=== PATIENT | male | born 1950 | race Two or more races ===

== ENCOUNTER 2024-01-28 07:03 | Day surgery (SDC) | payer OTHER ==
[~2024-01-28] VITALS: Ht 180.3 cm; Wt 93.4 kg
[~2024-01-28 07:03] MED LIST: AVAPRO150 MG PO; FERROCITE324 MG PO; TOPROL XL25 M1 PO; ZOCOR40 MG PO
[2024-01-28] MEDS ORDERED: CEFAZOLIN SODIUM 1,000 MG VIAL IV ONE (09:15)
[2024-01-28] MEDS ORDERED: HEPARIN SODIUM,PORCINE 500 UNITS/5 ML VIAL IV ONE (09:15)
[2024-01-28] MEDS ORDERED: TRAM1TAB98 PO (09:16)
[2024-01-28] MEDS ORDERED: BUPIVACAINE HCL/PF 0.25% 50 ML VIAL IJ ONE (09:45)
== END 2024-01-28 12:20 | disposition home or self-care (01) ==
LOC: CIR.AMB 07:03
PROVIDERS: ATTEND Surgery
DX: C20 Malignant neoplasm of rectum (principal); K62.5 Hemorrhage of anus and rectum; I25.10 Atherosclerotic heart disease of native coronary artery without angina pectoris; I49.9 Cardiac arrhythmia, unspecified; I10 Essential (primary) hypertension; E87.5 Hyperkalemia; D64.9 Anemia, unspecified; N28.9 Disorder of kidney and ureter, unspecified
CPT/HCPCS: 36561; C1751

== ENCOUNTER 2024-12-26 08:56 | Inpatient (IN) | payer OTHER ==
[~2024-12-26] VITALS: Ht 180.3 cm; Wt 95.3 kg
[~2024-12-26 08:56] MED LIST changes: +TRAM1TAB98 PO
[2024-12-26 09:26] VITALS: BP 130/82
[2024-12-26 09:33] LABS: PH,URINE 5.5 (5.0-8.0); URINE APPEARANCE Clear; URINE BILIRRUBIN Negative (NEGATIVE); URINE BLOOD Negative; URINE COLOR Yellow; URINE GLUCOSE Negative (NEGATIVE); URINE KETONE Negative (NEGATIVE); URINE LEUKOCYTE Negative; URINE NITRATE Negative; URINE PROTEIN Negative (NEGATIVE); URINE UROBILINOGEN 0.2 E.U./dl
[2024-12-26 09:36] LABS: BASO % 1.1 % (0.1-1.2); EOS # 0.33 (0.04-0.54); EOS % 7.3 % (0.7-7.0); HEMATOCRIT 38.6 % (40.1-51.0); LYMPH # 0.96 (1.18-3.74); LYMPH % 21.4 % (19.3-53.1); MEAN CORPUSCULAR HEMOGLOBIN 30.5 pg (25.6-32.2); NEUT # 2.55 (1.56-6.13); NEUT % 56.8 % (34.0-71.1); PLATELET COUNT 239 K/uL (163-369); RED BLOOD COUNT 4.26 M/uL (4.63-6.08); RED CELL DISTRIBUTION WIDTH 14.8 % (11.6-14.4)
[2024-12-26 09:37] LABS: URINE BACTERIA 7.3 uL (0.0-1933); URINE EPITHELIAL CELLS 2.3 uL (0.0-38.8); URINE WBC 2.6 uL (0.0-23.2)
[2024-12-26 09:42] LABS: MONO % 13.4 % (4.7-12.5)
[2024-12-26 09:52] LABS: URINE CAST 0.14 uL (0.0-1.40); URINE RBC 0.8 uL (0.0-20.8)
[2024-12-26 10:13] LABS: INR 1.08; PARTIAL THROMBOPLASTIN TIME 28.5 SECONDS (22.0-34.0); PROTHROMBIN TIME 11.7 SECONDS (9.0-11.5)
[2024-12-26 12:43] LABS: ALBUMIN 3.5 gm/dL (3.4-5.0); BILIRUBIN TOTAL 0.64 mg/dL (0.3-1.2); CALCIUM 9.5 mg/dL (8.5-10.1); CREATININE SERUM 1.38 mg/dL (0.70-1.30); GFR 50.65; GLOBULINA 3.9 G/DL (2.4-3.5); POTASSIUM 5.13 mEq/L (3.5-5.1); TOTAL PROTEIN 7.4 gm/dL (6.4-8.2)
[2024-12-26 13:21] LABS: RH POSITIVE
[2025-01-02] MEDS ORDERED: CEFTRIAXONE SODIUM 2,000 MG VIAL ONE (07:54)
[2025-01-02] MEDS ORDERED: METRONIDAZOLE/SODIUM CHLORIDE 500 MG/100 ML PIGGYBACK IV ONE (07:54)
[2025-01-02] MEDS ORDERED: LIDOCAINE HCL 1%/EPINEPHRINE 20ML VIAL IJ ONE (11:00)
[2025-01-02] MEDS ORDERED: BUPIVACAINE HCL 30 ML VIAL IJ ONE (11:00)
[2025-01-02] MEDS ORDERED: RINGERS SOLUTION,LACTATED 1,000 ML IV SCH (12:30)
[2025-01-02] MEDS ORDERED: MORPHINE SULFATE 4 MG/ML CARTRIDGE IV PRN (12:30)
[2025-01-02] MEDS ORDERED: DEXTROSE 50 % IN WATER 0.5 G/ML VIAL IV PRN (12:30)
[2025-01-02] MEDS ORDERED: OxyCODONE HCL 5 MG TABLET (ROXICODONE) PO PRN (12:30)
[2025-01-02] MEDS ORDERED: ONDANSETRON HCL 2 MG/ML VIAL IV PRN (12:30)
[2025-01-02] MEDS ORDERED: MORPHINE SULFATE 4 MG/ML VIAL IV ONE (13:45)
[2025-01-02] MEDS ORDERED: ACETAMINOPHEN 500 MG GEL..CAP PO SCH (14:00)
[2025-01-02 16:02] LABS: ALBUMIN 3.3 gm/dL (3.4-5.0); CALCIUM 9.1 mg/dL (8.5-10.1); CREATININE SERUM 1.21 mg/dL (0.70-1.30); GFR 58.95; MAGNESIUM 1.9 mg/dL (1.8-2.4); PHOSPHOROUS 3.9 mg/dL (2.5-4.9); POTASSIUM 4.52 mEq/L (3.5-5.1)
[2025-01-02] MEDS ORDERED: GABAPENTIN 300 MG CAPSULE PO SCH (17:00)
[2025-01-02] MEDS ORDERED: POLYETHYLENE GLYCOL 3350 17 GM BLIST.PACK PO SCH (17:00)
[2025-01-02 17:27] LABS: BASO % 0.1 % (0.1-1.2); HEMOGLOBIN 12.4 g/dL (13.7-17.5); LYMPH # 0.45 (1.18-3.74); LYMPH % 4.8 % (19.3-53.1); MEAN CORPUSCULAR HEMOGLOBIN 30.2 pg (25.6-32.2); MONO # 0.68 (0.24-0.82); MONO % 7.2 % (4.7-12.5); NEUT # 8.26 (1.56-6.13); NEUT % 87.6 % (34.0-71.1); PLATELET COUNT 223 K/uL (163-369); RED BLOOD COUNT 4.11 M/uL (4.63-6.08); RED CELL DISTRIBUTION WIDTH 14.6 % (11.6-14.4)
[2025-01-02 18:20] VITALS: BP 158/81; O2SAT 95
[2025-01-02] MEDS ORDERED: FAMOTIDINE/PF 20 MG/2 ML VIAL IV PUSH SCH (21:00)
[2025-01-03 02:29] VITALS: BP 142/81; O2SAT 95
[2025-01-03 08:00] VITALS: BP 149/78; O2SAT 95
[2025-01-03 08:32] LABS: BASO % 0.1 % (0.1-1.2); EOS # 0.01 (0.04-0.54); EOS % 0.1 % (0.7-7.0); HEMOGLOBIN 12.1 g/dL (13.7-17.5); LYMPH # 0.45 (1.18-3.74); LYMPH % 6.7 % (19.3-53.1); MEAN CORPUSCULAR HEMOGLOBIN 30.1 pg (25.6-32.2); MONO # 0.64 (0.24-0.82); MONO % 9.6 % (4.7-12.5); NEUT # 5.53 (1.56-6.13); NEUT % 83.1 % (34.0-71.1); PLATELET COUNT 200 K/uL (163-369); RED BLOOD COUNT 4.02 M/uL (4.63-6.08); RED CELL DISTRIBUTION WIDTH 14.7 % (11.6-14.4)
[2025-01-03] MEDS ORDERED: METOPROLOL SUCCINATE 25 MG TAB.SR.24H PO SCH (09:00)
[2025-01-03] MEDS ORDERED: IRBESARTAN 150 MG TABLET PO SCH (09:00)
[2025-01-03 09:28] LABS: ALBUMIN 3.1 gm/dL (3.4-5.0); CALCIUM 8.9 mg/dL (8.5-10.1); CREATININE SERUM 1.07 mg/dL (0.70-1.30); GFR 67.93; MAGNESIUM 1.8 mg/dL (1.8-2.4); PHOSPHOROUS 2.9 mg/dL (2.5-4.9); POTASSIUM 4.15 mEq/L (3.5-5.1)
[2025-01-03 16:00] VITALS: BP 121/65; O2SAT 96
[2025-01-03] MEDS ORDERED: ENOXAPARIN SODIUM 40 MG/0.4 ML SYRINGE SUBCUTANEO SCH (17:00)
[2025-01-04 01:01] VITALS: BP 136/83; O2SAT 99
[2025-01-04 08:00] VITALS: BP 149/87; O2SAT 95
[2025-01-04] MEDS ORDERED: ENOXAPARIN SODIUM 40 MG/0.4 ML SYRINGE SUBCUTANEO SCH (09:00)
[2025-01-04] MEDS ORDERED: TAMSULOSIN HCL 0.4 MG CAP PO SCH (09:51)
[2025-01-04 16:00] VITALS: BP 138/85; O2SAT 95
[2025-01-05] VITALS: BP 139/82; O2SAT 94
[2025-01-05 08:00] VITALS: BP 125/78; O2SAT 96
[2025-01-05 09:49] LABS: BASO % 0.4 % (0.1-1.2); EOS # 0.13 (0.04-0.54); EOS % 1.7 % (0.7-7.0); HEMATOCRIT 39.9 % (40.1-51.0); HEMOGLOBIN 13.2 g/dL (13.7-17.5); LYMPH # 0.74 (1.18-3.74); LYMPH % 9.7 % (19.3-53.1); MONO # 0.66 (0.24-0.82); MONO % 8.7 % (4.7-12.5); NEUT # 6.04 (1.56-6.13); NEUT % 79.4 % (34.0-71.1); PLATELET COUNT 230 K/uL (163-369); RED CELL DISTRIBUTION WIDTH 14.7 % (11.6-14.4)
[2025-01-05 10:49] LABS: ALBUMIN 2.8 gm/dL (3.4-5.0); CREATININE SERUM 1.16 mg/dL (0.70-1.30); GFR 61.89; PHOSPHOROUS 3.1 mg/dL (2.5-4.9); POTASSIUM 4.44 mEq/L (3.5-5.1)
[2025-01-05 15:55] VITALS: BP 153/90; O2SAT 97
[2025-01-06 00:37] VITALS: BP 127/80; O2SAT 94
[2025-01-06 08:00] VITALS: BP 133/83; O2SAT 95
[2025-01-06 16:00] VITALS: BP 125/81; O2SAT 95
[2025-01-07 00:54] VITALS: BP 126/79; O2SAT 95
[2025-01-07 10:05] VITALS: BP 135/77; O2SAT 96
[2025-01-07 16:00] VITALS: BP 131/88; O2SAT 97
[2025-01-08] VITALS: BP 106/56; O2SAT 94
[2025-01-08] MEDS ORDERED: TYLENOL ARTHRI650 MG PO (07:19)
[2025-01-08] MEDS ORDERED: NEURONTIN300 MG PO (07:19)
[2025-01-08] MEDS ORDERED: TAMS0.4C PO (07:19)
[2025-01-08] MEDS ORDERED: PRILOSEC OTC20 MG PO (07:19)
[2025-01-08 08:52] VITALS: BP 151/92; O2SAT 96
== END 2025-01-08 14:38 | disposition home or self-care (01) | DRG 331 ==
LOC: SURH 01-02 07:00 → O/R 01-02 07:43 → SURH 01-02 09:00
PROVIDERS: ADMIT Surgery; ATTEND Surgery
PROC: 0DTP4ZZ Resection of Rectum, Percutaneous Endoscopic Approach (ICD-10-PCS; 2025-01-02)
PROC: 07BC4ZZ Excision of Pelvis Lymphatic, Percutaneous Endoscopic Approach (ICD-10-PCS; 2025-01-02)
PROC: 0DJD8ZZ Inspection of Lower Intestinal Tract, Via Natural or Artificial Opening Endoscopic (ICD-10-PCS; 2025-01-02)
PROC: 0D1B4Z4 Bypass Ileum to Cutaneous, Percutaneous Endoscopic Approach (ICD-10-PCS; principal; 2025-01-02 07:00)
DX: C20 Malignant neoplasm of rectum (principal)

== ENCOUNTER 2024-12-26 10:35 | Outpatient (CLI) | payer OTHER | END 2024-12-26 10:45 | disposition home or self-care (01) | LOC: TOM 10:35 | PROVIDERS: ATTEND Surgery | DX: C20 Malignant neoplasm of rectum (principal); K62.5 Hemorrhage of anus and rectum; R59.0 Localized enlarged lymph nodes; D50.9 Iron deficiency anemia, unspecified | CPT/HCPCS: 71260; 74177; Q9965 ==

== ENCOUNTER 2025-05-11 09:00 | Inpatient (IN) | payer OTHER ==
[~2025-05-11] VITALS: Ht 180.3 cm; Wt 93.0 kg
[~2025-05-11 09:00] MED LIST changes: +NEURONTIN300 MG PO; +PRILOSEC OTC20 MG PO; +TAMS0.4C PO; +TYLENOL ARTHRI650 MG PO
[2025-05-11 10:38] LABS: BASO % 0.8 % (0.1-1.2); EOS # 0.17 (0.04-0.54); EOS % 3.4 % (0.7-7.0); LYMPH # 0.96 (1.18-3.74); LYMPH % 19.1 % (19.3-53.1); MEAN PLATELET VOLUME 8.80 fl (9.4-12.4); MONO # 0.52 (0.24-0.82); MONO % 10.4 % (4.7-12.5); NEUT # 3.32 (1.56-6.13); NEUT % 66.1 % (34.0-71.1); RED CELL DISTRIBUTION WIDTH 15.1 % (11.6-14.4)
[2025-05-11 10:39] LABS: URINE APPEARANCE Clear; URINE BILIRRUBIN Negative (NEGATIVE); URINE BLOOD Negative; URINE COLOR Yellow; URINE GLUCOSE Negative (NEGATIVE); URINE KETONE Negative (NEGATIVE); URINE LEUKOCYTE Small; URINE NITRATE Negative; URINE PROTEIN Negative (NEGATIVE); URINE UROBILINOGEN 0.2 E.U./dl
[2025-05-11 10:42] VITALS: BP 126/82
[2025-05-11 10:42] LABS: URINE BACTERIA 32.3 uL (0.0-1933); URINE EPITHELIAL CELLS 7.2 uL (0.0-38.8); URINE WBC 105.1 uL (0.0-23.2)
[2025-05-11 11:20] LABS: INR 1.05
[2025-05-11 11:33] LABS: URINE CAST 0.73 uL (0.0-1.40); URINE RBC 0.8 uL (0.0-20.8)
[2025-05-11 11:55] LABS: ALT/SGPT 18.0 U/L (12-78); AST/SGOT 16.0 U/L (15-37); BILIRUBIN TOTAL 0.58 mg/dL (0.3-1.2); BUN CREA RATIO 14.0 (7.0-25.0); CREATININE SERUM 1.48 mg/dL (0.70-1.30); GFR 46.59; GLOBULINA 3.8 G/DL (2.4-3.5); GLUCOSE FASTING 94.0 mg/dL (65-100); OSMOLALITY SERUM 286.0 MOSM/KG (275-295)
[2025-05-18] MEDS ORDERED: METRONIDAZOLE/SODIUM CHLORIDE 500 MG/100 ML PIGGYBACK IV ONE (08:45)
[2025-05-18] MEDS ORDERED: CEFTRIAXONE SODIUM 2,000 MG VIAL IV ONE (08:45)
[2025-05-18] MEDS ORDERED: CHLORHEXIDINE GLUCONATE 120 ML BOTTLE TOP ONE (09:00)
[2025-05-18] MEDS ORDERED: ENOXAPARIN SODIUM 40 MG/0.4 ML SYRINGE SUBCUTANEO ONE (09:15)
[2025-05-18] MEDS ORDERED: OxyCODONE HCL 5 MG TABLET (ROXICODONE) PO PRN (09:45)
[2025-05-18] MEDS ORDERED: RINGERS SOLUTION,LACTATED 1,000 ML IV SCH (09:45)
[2025-05-18] MEDS ORDERED: DEXTROSE 50 % IN WATER 0.5 G/ML DISP.SYRIN IV PRN (09:45)
[2025-05-18] MEDS ORDERED: MORPHINE SULFATE 4 MG/ML CARTRIDGE IV PRN (09:45)
[2025-05-18] MEDS ORDERED: ONDANSETRON HCL 2 MG/ML VIAL IV PRN (09:45)
[2025-05-18 12:38] LABS: BASO % 0.4 % (0.1-1.2); EOS # 0.04 (0.04-0.54); EOS % 0.5 % (0.7-7.0); LYMPH # 0.77 (1.18-3.74); LYMPH % 9.8 % (19.3-53.1); MEAN PLATELET VOLUME 9.00 fl (9.4-12.4); MONO # 0.53 (0.24-0.82); MONO % 6.8 % (4.7-12.5); NEUT # 6.44 (1.56-6.13); NEUT % 82.2 % (34.0-71.1); RED CELL DISTRIBUTION WIDTH 14.7 % (11.6-14.4)
[2025-05-18 13:11] LABS: BUN CREA RATIO 16.0 (7.0-25.0); CREATININE SERUM 1.21 mg/dL (0.70-1.30); GFR 58.78; GLUCOSE FASTING 102.0 mg/dL (65-100); OSMOLALITY SERUM 282.0 MOSM/KG (275-295)
[2025-05-18] MEDS ORDERED: ACETAMINOPHEN 500 MG GEL..CAP PO SCH (14:00)
[2025-05-18] MEDS ORDERED: ONDANSETRON HCL 2 MG/ML VIAL IV ONE (16:00)
[2025-05-18] MEDS ORDERED: SIMVASTATIN 40 MG TABLET PO SCH (17:00)
[2025-05-18] MEDS ORDERED: GABAPENTIN 300 MG CAPSULE PO SCH (17:00)
[2025-05-18 17:59] VITALS: BP 138/80; O2SAT 95
[2025-05-18] MEDS ORDERED: FAMOTIDINE/PF 20 MG/2 ML VIAL IV PUSH SCH (21:00)
[2025-05-19 01:17] VITALS: BP 141/79; O2SAT 96
[2025-05-19 08:38] LABS: BASO % 0.4 % (0.1-1.2); EOS # 0.03 (0.04-0.54); EOS % 0.4 % (0.7-7.0); LYMPH # 0.64 (1.18-3.74); LYMPH % 8.5 % (19.3-53.1); MEAN PLATELET VOLUME 9.50 fl (9.4-12.4); MONO # 0.55 (0.24-0.82); MONO % 7.3 % (4.7-12.5); NEUT # 6.25 (1.56-6.13); NEUT % 83.3 % (34.0-71.1); RED CELL DISTRIBUTION WIDTH 14.3 % (11.6-14.4)
[2025-05-19 08:52] VITALS: BP 131/81; O2SAT 94
[2025-05-19] MEDS ORDERED: LACTULOSE 20 G/30 ML BLIST.PACK PO SCH (09:00)
[2025-05-19] MEDS ORDERED: METOPROLOL SUCCINATE 25 MG TAB.SR.24H PO SCH (09:00)
[2025-05-19] MEDS ORDERED: IRBESARTAN 150 MG TABLET PO SCH (09:00)
[2025-05-19 11:05] LABS: BUN CREA RATIO 13.0 (7.0-25.0); CREATININE SERUM 1.19 mg/dL (0.70-1.30); GFR 59.92; GLUCOSE FASTING 117.0 mg/dL (65-100); OSMOLALITY SERUM 285.0 MOSM/KG (275-295)
[2025-05-19 16:00] VITALS: BP 136/80; O2SAT 94
[2025-05-19] MEDS ORDERED: ENOXAPARIN SODIUM 40 MG/0.4 ML SYRINGE SUBCUTANEO SCH (17:00)
[2025-05-20 00:15] VITALS: BP 143/88; O2SAT 95
[2025-05-20 08:15] VITALS: BP 165/95; O2SAT 95
[2025-05-20] MEDS ORDERED: ENOXAPARIN SODIUM 40 MG/0.4 ML SYRINGE SUBCUTANEO SCH (09:00)
[2025-05-20 15:00] VITALS: BP 145/90; O2SAT 95
[2025-05-21] VITALS: BP 118/81; O2SAT 95
[2025-05-21 08:31] VITALS: BP 143/88; O2SAT 95
== END 2025-05-21 11:49 | disposition home or self-care (01) | DRG 331 ==
LOC: O/R 05-18 06:00 → SURH 05-18 06:00
PROVIDERS: ADMIT Surgery; ATTEND Surgery
PROC: 0DQB4ZZ Repair Ileum, Percutaneous Endoscopic Approach (ICD-10-PCS; principal; 2025-05-18 16:30)
DX: C20 Malignant neoplasm of rectum (principal); Z93.2 Ileostomy status; R59.0 Localized enlarged lymph nodes